=== PATIENT | female | born 1995 | race Caucasian/White ===

== ENCOUNTER 2019-05-11 10:47 | Inpatient (IN) | payer MEDICAID, SELFPAY ==
[2019-05-11] VITALS (8 sets, daily range): BP systolic 102–149; BP diastolic 82–104; PULSE 68–105; RESP 14–22; TEMP 36.4–36.7; O2SAT 98–100
--- NOTE | ~2019-05-11 | CT_ITS ---
EXAMINATION: CT brain wo con DATE: 05/11/2019 11:18 INDICATION: Altered mental status TECHNIQUE: Computed tomography (CT) of the head was performed without intravenous contrast. Sagittal and coronal reconstructions were performed. The mA was adjusted according to patient size. Iterative reconstruction technique was employed. The dose-length product was 605.33 mGy-cm. COMPARISON: None FINDINGS: No acute intracranial hemorrhage, acute infarction or abnormal extra axial fluid collection. Ventricl es are normal and symmetric. Increased prominence of the sulci and subarachnoid spaces consistent wit h mild volume loss which is disproportionate for age. No mass/mass effect. Callosal thickening with p artial opacification of the right sphenoid sinus. Mild mucosal thickening the anterior right ethmoid sinus. The orbits, paranasal sinuses and mastoid air cells are normal. IMPRESSION: 1. Mild cerebral volume loss disproportionate for age. No acute intracranial process. Reviewed, dictated and finalized at location A. IMPRESSION: 1. Mild cerebral volume loss disproportionate for age. No acute intracranial pr ocess.
--- NOTE | ~2019-05-11 | XR_ITS ---
EXAMINATION: XR chest 2V DATE: 05/11/2019 11:22 INDICATION: Productive cough TECHNIQUE: PA and lateral views of the chest were obtained. COMPARISON: None FINDINGS: The lungs are clear with no focal airspace opacities, pulmonary edema, pleural effusion or pneumothor ax. The cardiomediastinal silhouette is normal. Mild lower thoracic levocurvature. IMPRESSION: 1. No acute cardiopulmonary disease. Reviewed, dictated and finalized at location A.
--- NOTE | ~2019-05-11 | US_ITS ---
EXAMINATION: US right upper quadrant DATE: 05/11/2019 12:48 INDICATION: Liver failure TECHNIQUE: Multiple grayscale and Doppler ultrasound images of the abdomen were obtained. COMPARISON: None FINDINGS: The visualized portions of the pancreatic body is normal in appearance. The head and tail are not vis ualized. Liver has normal contour, with a smooth surface. There is increased parenchymal echogenicity and coarsened echotexture consistent with diffuse hepatic steatosis. No liver lesion identified. No intrahepatic biliary duct dilation suspected. Portal venous flow was seen in the hepatopetal, normal direction and has normal Doppler waveform. The visualized proximal inferior vena cava is normal. The gallbladder is normal in appearance. There is no cholelithiasis. The common bile duct measures 4-5 mm, which is normal. Per discussion with the r programmer there was diffuse right upper quadrant tende rness but no specific sonographic Knight's sign. Visualized portions of the right kidney demonstrates normal echogenicity and contour with no hydronephrosis. IMPRESSION: 1. Diffuse hepatic steatosis. No intra or extrahepatic biliary ductal dilation. Reviewed, dictated and finalized at location A.
--- NOTE | 2019-05-11 10:48 | ED.AMS ---
HPI - Altered Mental Status General Chief Complaint: Altered Mental Status Stated Complaint: ams Time Seen by Provider: 05/11/19 10:48 Source: patient and EMS Mode of arrival: EMS Limitations: no limitations History of Present Illness HPI narrative: A 24 y/o female presents to the ED, via EMS, with c/o AMS. Pt states that she is here for a cough and congestion with an associated subjective fever. Per EMS, pt's friend called because the pt had been drinking alcohol last night and she was not acting normal this morning. Pt's friend reported possible seizure-like activity. Pt admits that she was drinking alcohol earlier, but she denies drug use. She reports N/V x1, but denies ABD pain, CP, SI, and homicidal ideations. Onset (ago): hour(s) Timing confirmed by: other (pt's friend) Context: alcohol abuse Related Data Home Medications Medication Instructions Recorded Confirmed buspirone mg PO BID 05/11/19 risperidone mg PO DAILY 05/11/19 Allergies Allergy/AdvReac Type Severity Reaction Status Date / Time Penicillins Allergy Unknown Verified 05/11/19 11:01 acetaminophen AdvReac Unknown VOMITING Verified 05/11/19 11:01 codeine AdvReac Unknown VOMITING Verified 05/11/19 11:01 Review of Systems Review of Systems: Narrative: CONSTITUTIONAL: Reports: subjective fever CARDIOVASCULAR: Denies chest pain, palpitations, or edema. RESPIRATORY: Reports: cough, congestion; Denies dyspnea. GASTROINTESTINAL: Reports: N/V x1; Denies abdominal pain, diarrhea. NEUROLOGIC: Reports: AMS; Denies headache, numbness, or weakness. PSYCHIATRIC: Denies SI, homicidal ideations, anxiety, or depression. All systems reviewed & are unremarkable except as noted in HPI and below [facility] Surgical History Surgical History (Updated 05/11/19 @ 11:13 by Roxanna Jorgensen) H/O foot surgery right Social History Social History (Updated 05/11/19 @ 11:13 by Roxanna Jorgensen) Smoking status: Smoker, status unknown Second hand tobacco smoke exposure: No Alcohol intake: current Substance use: never Comments No PCP on file Exam Narrative: Exam Narrative: GENERAL: Awake, alert, conversant, thin, malnourished appearing HEAD: Normocephalic, atraumatic. Berman facies. NECK: Full range of motion CHEST: No respiratory distress, speaking in full sentences, no tachypnea HEART: Mildly tachycardic ABDOMEN: Mild distension EXTREMITIES: Normal range of motion. No edema. SKIN: Dry, pale. Scattered bruising to the upper and lower extremities, large ecchymosis on the left ankle NEURO: No focal deficits. Alert and oriented to person and place, but not time. Pt states it's December of 2017. She can identify the President. Course Course Emergency Course: Patient presented to the emergency department for evaluation of altered mentation. Per EMS, patient had possible reported seizure-like activity by roommate. They stated that the patient had been drinking alcohol last night, patient does confirm this. Patient is currently alert and oriented to person, and place, not to time. She is able to provide history. She has somewhat of a berman face ease/syndromic appearance without ever being diagnosed with any medical problems. Patient does state that she drinks heavily 3 to 4 days a week. She states she has never been diagnosed with alcoholism or complications from alcohol abuse. Patient is very malnourished and thin appearing. Laboratory results notable for thrombocytopenia, hyponatremia, hypokalemia, no acute kidney injury. No UTI. No evidence of pneumonia. CT head with mild atrophy given her age. No acute intracranial abnormality. Also considered metabolic pathology given syndromic appearance, but this may appear from malnourishment. Pt has no history of medical problems. Also obtained coags and RUQ US. Patient will be admitted for electrolyte derangement, for IV replenishment as well as oral replenishment. She is admitted in stable condition. Consultations Consultation #1
--- NOTE | 2019-05-11 10:52 | ECG_ITS ---
Measurements Intervals [place] Rate: 98 P: 42 VT: 132 QRS: -17 QRSD: 70 T: 33 QT: 345 QTc: 441 Interpretive Statements SINUS RHYTHM NONSPECIFIC ST & T-WAVE ABNORMALITY- DIFFUSE LEADS BASELINE ARTIFACT- I, II, III, AVR, AVL, AVF, V1-V6 BORDERLINE ECG Electronically Signed On 05-11-2019 14:50:16 CDT by Milad Auguste D.O.
[2019-05-11 11:15] LABS: Basophils Percent Auto 0.5 % (0.2-1.2); Eosinophils Percent Auto 0.2 % (0-4.4); Hematocrit 44.2 % (37.0-47.0); Hemoglobin 15.7 g/dL (12.0-15.0); Immature Granulocyte Absolute 0.02 K/mm3 (0.00-0.031); Immature Granulocyte Percent A 0.3 % (0-0.5); Lymphocytes Percent Auto 25.8 % (18.3-44.2); Mean Corpuscular HGB Conc 35.5 g/dl (32-36); Mean Corpuscular Hemoglobin 32.8 pg (26-34); Mean Corpuscular Volume 92.5 fl (80-100); Mean Platelet Volume 12.6 fl (7.4-10.4); Monocytes Absolute Auto 1.2 K/mm3 (0.1-0.6); Monocytes Percent Auto 18.9 % (2.6-8.5); Neutrophils Absolute Auto 3.4 K/mm3 (1.3-6.7); Neutrophils Percent Auto 54.3 % (45.5-73.1); Platelet Count Result 93 k/mm3 (150-375); Red Blood Count 4.78 M/mm3 (4.2-5.4); Red Cell Distribution Width 12.7 % (11.5-14.5); White Blood Count 6.2 K/mm3 (4.5-10.0)
--- NOTE | 2019-05-11 11:15 | PC.NURSE ---
pt at radiology
[2019-05-11 11:18] LABS: Glucose Point of Care 139 (65-105)
[2019-05-11 11:28] LABS: Acetaminophen < 10 ug/mL (10-30); Ammonia 15 umol/L (9-30); Ethanol < 10 mg/dL (<10); Salicylate < 1.0 mg/dL (2-20)
[2019-05-11 11:28] LABS: Add Urine Microscopic? YES; Appearance Urine Clear (Clear); Bacteria Urine Trace /hpf; Bilirubin Urine Negative (Negative); Blood Urine 1+ (Negative); Color Urine Yellow (Yellow); Glucose Urine UA Negative (Negative); Ketones Urine 1+ mg/dL (Negative); Leukocyte Esterase Ur Trace LEU/UL (Negative); Nitrate Urine Negative (Negative); Protein Urine Negative (Negative); RBC Urine 0-2 /hpf (0-2); Specific Grav Ur 1.009 (1.001-1.035); Squamous Epithelial Cell Urine Many /hpf (Few)
[2019-05-11 11:36] LABS: Albumin Level 4.7 g/dL (3.5-5.1); Alkaline Phosphatase 110 U/L (38-126); Aspartate Amino Transferase 131 U/L (14-36); Bilirubin,Total 2.7 mg/dL (0.2-1.3); Blood Urea Nitrogen 4 mg/dL (7-17); Calcium 9.6 mg/dL (8.4-10.2); Carbon Dioxide 28 mmol/L (22-30); Chloride 81 mmol/L (98-107); Creatine Kinase 49 U/L (30-135); Estimated CRCL calculation 110 ml/min; Estimated Glomerular Filt Rate > 60; Glucose 112 mg/dL (65-105); Potassium 2.2 mmol/L (3.4-5.0); Sodium 132 mmol/L (137-145)
[2019-05-11 11:38] LABS: Amphetamine Screen Urine Negative (Negative); Barbiturate Screen Urine Negative (Negative); Benzodiazepines Screen Urine Negative (Negative); Cannabinoid Screen Urine Negative (Negative); Cocaine Screen Urine Negative (Negative); Methadone Screen Urine Negative (Negative); Opiate Screen Urine Negative (Negative); Phencyclidine Screen Urine Negative (Negative)
[2019-05-11 11:39] LABS: Alanine Aminotransferase 48 U/L (4-35)
[2019-05-11] MEDS: SODIUM CHLORIDE 0.9% IV 1,000 ML 999 ML IV CONT (11:43)
[2019-05-11 12:01] LABS: Magnesium 1.3 mg/dL (1.6-2.3); Phosphorus 2.3 mg/dL (2.5-4.5)
[2019-05-11] MEDS: LORAZEPAM 0.5 MG TABLET PO (12:15)
--- NOTE | 2019-05-11 12:33 | PC.NURSE ---
Patient in ultrasound at this time
[2019-05-11 13:38] LABS: Folic Acid 4.6 ng/mL (2.76->20)
[2019-05-11 13:50] LABS: Partial Thromboplastin Time 26.9 SECONDS (22.3-36.8); Prothrombin Time 13.3 Seconds (11.1-14.7)
--- NOTE | 2019-05-11 14:12 | ADMGEN ---
This patient, Teresa Marie, was admitted to [facility] Surg Room 311-01. Patient/family oriented to hospital policies and general routines including ID bracelet, bed and alarms, visiting hours, pain management, procedures, bathroom and other care routines, personal items, smoking policy, room service/diet, and visiting hours. Valuables list has been completed. Information on how to activate the Rapid Response Team has been discussed. Patient/Family are encouraged to report perceived risks to care and to ask questions if they do not understand what they are told or what they should do.
--- NOTE | 2019-05-11 14:19 | PM.IMHP ---
H&P: HPI History of Present Illness Chief complaint: Hypokalemia/Dehydration Narrative: Date of visit 1399. Teresa Marie is a 24 year old white female who presented to the emergency room with complaints of some cough and congestion and roommate had called EMS because of altered mental status. On evaluation in the ER she is found to be hypokalemic, thrombocytopenic, with low magnesium and phosphorus. She did admit to having some drinking problem but would not admit to how much. With extreme metabolic parameters she was admitted for treatment of the same She received 2 L of IV fluid in the ER Review of Systems Review of Systems: Narrative: Constitutional she has lost some weight but she is not sure how much and says she has no appetite gets nauseated a lot Eye no double vision scotoma Mouth no pharyngitis laryngitis Pulmonary minimal cough Cardio no palpitations shortness of breath or chest pain no dysuria no hematuria Breakfast Attendant last menstrual cycle some 6 months ago GI has had some loose stools but no melena or hematochezia Muscle skeletal no particular joint discomfort Integument no skin breakdown rashes but easy bruising Psych no apparent change in her mentation [facility] Surgical History Surgical History (Updated 05/11/19 @ 11:13 by Roxanna Jorgensen) H/O foot surgery right Family History Family History (Updated 05/11/19 @ 13:31 by Pascual Ocampo RN) Mother Cerebrovascular accident Diabetes mellitus Pancreatitis Social History Social History (Updated 05/11/19 @ 14:10 by Rogers Valdivia MD) Smoking packs per day: 0.5 Smoking cigarettes per day: 10.0 Years smoked: 10 Smoking pack-years: 5.00 Smoking status: Current every day smoker Tobacco type: cigarettes Second hand tobacco smoke exposure: No Alcohol intake: current Drinks per week: 6 Alcohol use details: drinks rum up to 1/5th per day Substance use: never Living arrangements: with roommate(s) Occupation/Education: unemployed Additional occupation/education comments: lives with money from trust Gender identity (if verbalized by the patient): Female Spiritual care concerns: No Agree to blood products: Yes Meds Home Medications and Allergies Home Medications Medication Instructions Recorded Confirmed Type buspirone mg PO BID 05/11/19 History risperidone mg PO DAILY 05/11/19 History Allergies Allergy/AdvReac Type Severity Reaction Status Date / Time Penicillins Allergy Unknown Verified 05/11/19 11:01 acetaminophen AdvReac Unknown VOMITING Verified 05/11/19 11:01 codeine AdvReac Unknown VOMITING Verified 05/11/19 11:01 Vital Signs Vital Signs - 24 hr 05/11/19 10:47 05/11/19 11:27 05/11/19 12:16 Temperature 36.7 C Pulse Rate 105 H 83 Respiratory Rate 22 H 16 14 Blood Pressure 149/104 H 128/98 H Pulse Oximetry 98 100 Exam Narrative: Exam Narrative: Blood pressure 128/90 pulse is 82 regular Neck no adenopathy thyromegaly carotid bruits Mouth normal, face is full almost maxwell shaped Lungs clear CV no murmurs gallops rubs or clicks Abdomen is soft nontender no masses Extremities without edema distal pulses are 2+ Neuro alert cooperative cranial nerves 2-12 are intact oriented x3 no focal deficits this time H&P: Results Labs Labs: Short CBC 05/11/19 Range/Units 11:04 WBC 6.2 (4.5-10.0) K/mm3 Hgb 15.7 H (12.0-15.0) g/dL Hct 44.2 (37.0-47.0) % Plt Count 93 L (150-375) k/mm3 BMP 05/11/19 11:04 Sodium 132 L Potassium 2.2 L* Chloride 81 L Carbon Dioxide 28 BUN 4 L Creatinine 0.60 L Glucose 112 H Calcium 9.6 Cardiac Enzymes 05/11/19 Range/Units 11:04 Total Creatine Kinase 49 (30-135) U/L Liver Function 05/11/19 Range/Units 11:04 Total Bilirubin 2.7 H (0.2-1.3) mg/dL AST 131 H (14-36) U/L ALT 48 H (4-35) U/L Alkaline Phosphatase 110 (38-126) U/L Albumin 4.7 (3.5-5.1) g/dL Urine 05/11/19 Range/Un
[2019-05-11] MEDS: POTASSIUM CHLORIDE 20 MEQ TABLET 40 MEQ PO ×2 (16:09→21:00)
[2019-05-11] MEDS: MAGNESIUM SULF 2 GM/WATER 50ML 2 GM/50 ML BAG IVPB (17:02)
[2019-05-11] MEDS: busPIRone HCL 5 MG TABLET PO (19:53)
[2019-05-11] MEDS: POTASSIUM PHOS,M-BASIC-D-BASIC 20 MMOL in SODIUM CHLORIDE 0.9% IV 250 ML 64 MMOL IVPB (20:53)
[2019-05-11] MEDS: LORAZEPAM INJ 2 MG/ML VIAL 1 MG IV PUSH (22:12)
[2019-05-12] VITALS (28 sets, daily range): BP systolic 99–148; BP diastolic 68–108; PULSE 54–125; RESP 15–22; TEMP 36.1–36.5; O2SAT 92–100; BMI 23.0
[2019-05-12 00:38] LABS: Glucose Point of Care 108 (65-105)
[2019-05-12] MEDS: LORAZEPAM INJ 2 MG/ML VIAL 1 MG IV PUSH (02:00)
[2019-05-12] MEDS: LORAZEPAM INJ 2 MG/ML VIAL IV PUSH (02:56)
--- NOTE | 2019-05-12 03:50 | P.PNCROSS_ITS ---
Event Note Event Note Event Note: This is a 24 year old female who is being treated for acute altered mental status and alcohol abuse who tonight began to have withdrawal symptoms. I initiated a CIWA protocol and the patient has recieved a total of 4 mg of IV ativan. She continued to be very agitated, hallucinating, diaphoretic and exhibiting visible tremors. I have consulted Farm Operations Technical Director, Dr. Govea. I will transfer the patient to ICU. Initiate precedix IV bolus and IV drip. Continue IV BZDs. I will continue to assess as needed.
--- NOTE | 2019-05-12 04:36 | PC.NURSE ---
This patient, Teresa Marie, was transferred to [ICU 10 ] on 05/12/19 at 0430. Personal belongings sent with patient. Belongings list checked and signed with receiving [ Ehsan RN]. Report given to [Ehsan RN ]. Appropriate documentation sent with patient.
--- NOTE | 2019-05-12 04:37 | PC.NURSE ---
This patient, Teresa Marie, was received from [[id number] ] on 05/12/19 at 0430. Personal belongings list checked and signed. Patient/family oriented to unit policies and routines
[2019-05-12 05:42] LABS: Basophils Percent Auto 0.5 % (0.2-1.2); Eosinophils Percent Auto 0.2 % (0-4.4); Hemoglobin 12.1 g/dL (12.0-15.0); Immature Granulocyte Absolute 0.02 K/mm3 (0.00-0.031); Immature Granulocyte Percent A 0.5 % (0-0.5); Lymphocytes Absolute Auto 1.12 K/mm3 (0.9-3.2); Lymphocytes Percent Auto 26.9 % (18.3-44.2); Mean Corpuscular HGB Conc 34.6 g/dl (32-36); Mean Corpuscular Hemoglobin 32.9 pg (26-34); Mean Corpuscular Volume 95.1 fl (80-100); Mean Platelet Volume 13.1 fl (7.4-10.4); Monocytes Absolute Auto 0.6 K/mm3 (0.1-0.6); Monocytes Percent Auto 14.7 % (2.6-8.5); Neutrophils Absolute Auto 2.4 K/mm3 (1.3-6.7); Neutrophils Percent Auto 57.2 % (45.5-73.1); Platelet Count Result 62 k/mm3 (150-375); Red Blood Count 3.68 M/mm3 (4.2-5.4); Red Cell Distribution Width 12.8 % (11.5-14.5); White Blood Count 4.2 K/mm3 (4.5-10.0)
[2019-05-12 05:49] LABS: Alanine Aminotransferase 41 U/L (4-35); Albumin Level 3.4 g/dL (3.5-5.1); Alkaline Phosphatase 80 U/L (38-126); Aspartate Amino Transferase 109 U/L (14-36); Bilirubin,Total 1.5 mg/dL (0.2-1.3); Blood Urea Nitrogen 5 mg/dL (7-17); Calcium 8.5 mg/dL (8.4-10.2); Carbon Dioxide 32 mmol/L (22-30); Chloride 99 mmol/L (98-107); Estimated CRCL calculation 157 ml/min; Estimated Glomerular Filt Rate > 60; Glucose 114 mg/dL (65-105); Magnesium 1.9 mg/dL (1.6-2.3); Phosphorus 1.6 mg/dL (2.5-4.5); Potassium 2.9 mmol/L (3.4-5.0); Sodium 134 mmol/L (137-145)
[2019-05-12 06:15] LABS: Vitamin D 25 Hydroxy 15.4 ng/mL
[2019-05-12] MEDS: LACTATED RINGERS 1,000 ML 999 ML IV CONT (08:27)
[2019-05-12 08:30] LABS: Hepatitis B Surface Antigen Negative (Negative)
[2019-05-12 08:40] LABS: HAV RESULT Negative (Negative); Hepatitis B Core IgM Result Negative (Negative)
--- NOTE | 2019-05-12 08:44 | PC.NURSE ---
RN called family to update them about updated patient status and patient transfer to ICU at 0435 and left a message.
[2019-05-12 09:06] LABS: Hepatitis C Virus Antibody Negative (Negative)
--- NOTE | 2019-05-12 10:55 | WPDCNINT ---
Assessment and Plan Assessment and plan (1) Altered mental status: Qualifiers: Altered mental status type: unspecified Qualified Code(s): R41.82 - Altered mental status, unspecified Code(s): R41.82 - Altered mental status, unspecified Status: Acute Assessment and Plan: patient more awake, follows simple commands but is confused - currently she is calm, not agitated - continue Precedex infusion for possible alcohol intoxication/withdrawal - continue thiamine, will add folic acid and multivitamin - started patient on Librium (2) Alcohol abuse: Code(s): F10.10 - Alcohol abuse, uncomplicated Status: Acute Assessment and Plan: patient with alcohol abuse - continue medications as above - once patient improves, will discuss with her regarding alcohol rehab (3) Acute hypokalemia: Code(s): E87.6 - Hypokalemia Status: Acute Assessment and Plan: Replaced potassium and phosphorus (4) Thrombocytopenia: Code(s): D69.6 - Thrombocytopenia, unspecified Status: Acute Assessment and Plan: Thrombocytopenia likely related to alcohol abuse, continue to monitor - patient states she bruises easily, likely related to thrombocytopenia (5) Elevated LFTs: Code(s): R79.89 - Other specified abnormal findings of blood chemistry Status: Acute Assessment and Plan: elevated LFTs and total bilirubin, likely related to hepatic steatosis, alcohol abuse - transaminases trending down, continue to monitor Additional Plan discuss with patient updated with her condition and plan of care. 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 Patient also presented with some fevers and cough and congestion roommate had called EMS because of her altered mental status. According the ED record, patient's friend called EMS because the patient had been drinking alcohol the night prior to admission and was not acting normal on the day of admission. patient did admit to having alcohol. According the bedside RN patient drinks a 5th of rum daily. patient was admitted the medical floor for altered mental status and alcohol abuse and started to manifest withdrawal symptoms. CIWA score was elevated patient was agitated, hallucinating, diaphoretic and exhibited visible tremors. Patient was transferred to the ICU for Precedex infusion. Patient seen and examined the ICU this morning. Is awake, alert but confused. Patient thing she is in [place]. Patient denies any chest pain, abdominal pain, nausea vomiting at this time. Patient is participating in her examination. Patient follows commands, no tremors noted. Patient on Precedex infusion Review of Systems Review of Systems: All systems reviewed & are unremarkable except as noted in HPI and below [facility] Surgical History Surgical History (Updated 05/11/19 @ 11:13 by Roxanna Jorgensen) H/O foot surgery right Family History Family History (Updated 05/11/19 @ 13:31 by Pascual Ocampo RN) Mother Cerebrovascular accident Diabetes mellitus Pancreatitis Social History Social History (Updated 05/11/19 @ 14:10 by Rogers Valdivia MD) Smoking packs per day: 0.5 Smoking cigarettes per day: 10.0 Years smoked: 10 Smoking pack-years: 5.00 Smoking status: Current every day smoker Tobacco type: cigarettes Second hand tobacco smoke exposure: No Alcohol intake: current Drinks per week: 6 Alcohol use details: drinks rum up to 1/5th per day Substance use: never Living arrangements: with roommate(s) Occupation/Education: unemployed Additional occupation/education comments: lives with money from trust Gender identity (if verbalized by the patient): Pratibhaa
[2019-05-12] MEDS: POTASSIUM PHOS,M-BASIC-D-BASIC 20 MMOL in SODIUM CHLORIDE 0.9% IV 250 ML 62.5 MMOL IVPB (11:34)
[2019-05-12 12:51] LABS: Glucose Point of Care 94 (65-105)
[2019-05-12] MEDS: FOLIC ACID 1 MG TABLET PO (13:15)
[2019-05-12] MEDS: CHLORDIAZEPOXIDE 25 MG CAPSULE 50 MG PO ×3 (13:15→23:19)
[2019-05-12] MEDS: THERAPEUTIC MULTIVITAMINS/MINERALS TAB (*BKC) 1 TABLET PO (13:15)
[2019-05-12] MEDS: busPIRone HCL 5 MG TABLET PO ×2 (13:15→17:44)
[2019-05-12] MEDS: risperiDONE 0.25 MG TABLET PO (13:16)
[2019-05-12] MEDS: THIAMINE HCL 100 MG TABLET PO (13:16)
--- NOTE | 2019-05-12 14:01 | PM.IMPN ---
Progress Note: A&P Assessment and Plan (1) Altered mental status: Qualifiers: Altered mental status type: unspecified Qualified Code(s): R41.82 - Altered mental status, unspecified Code(s): R41.82 - Altered mental status, unspecified Status: Acute Assessment and Plan: Oriented and lucid initially on admission became more confused and hallucinating p.m. of the .. Probable all alcohol withdrawal but she has been on major tranquilizers in the past and could be complicated by major affective disorder. Continue to monitor and and correct electrolyte abnormalities (2) Acute hypokalemia: Code(s): E87.6 - Hypokalemia Status: Acute Assessment and Plan: P.o. and IV supplements. Still low today after over 100 mil equivalents given 05/10. suspect all dietary with ETOH abuse Continue monitor and replace with (3) Alcohol abuse: Code(s): F10.10 - Alcohol abuse, uncomplicated Status: Acute Assessment and Plan: Patient admits to drinking almost a 5th of rum daily . Questioned whether she like to talk to someone about rehab but she reluctant to do so. Realizes that she does need to stop Has gone for so long as 3-4 days in the past and gets a little shaky but never had any withdrawal (4) Thrombocytopenia: Code(s): D69.6 - Thrombocytopenia, unspecified Status: Acute Assessment and Plan: Suspect secondary to ETOH. Will check robb, B12 level is normal (5) Elevated LFTs: Code(s): R79.89 - Other specified abnormal findings of blood chemistry Status: Acute Assessment and Plan: Thought secondary to ETOH. Sonogram liver with fatty infiltration. hepatitis profile negative and trending down.. (6) DVT prophylaxis: Code(s): Z29.9 - Encounter for prophylactic measures, unspecified Status: Acute Assessment and Plan: mechanical with thrombocytopenia Subjective Date/time seen: 05/12/19 14:01 Interval history: Date of visit 05/11 24-year-old alcoholic brought to hospital when roommate noted she was confused. Found to be profoundly hypokalemic with thrombocytopenia. Initial evaluation by me revealed alert and oriented but on the evening of the restarted actively hallucinating and was transferred to ICU for further treatment. Currently on Precedex drip Exam Narrative: Exam Narrative: Blood pressure 132/90 pulse 56 regular afebrile Pupils equal reactive to light Neck supple Lungs clear CV regular rate rhythm Abdomen benign Extremities without edema with some bruising Neuro initially groggy but arousable and calm with no active hallucinations presently Objective Data Vital Signs Vital Signs: Vital Signs - 24 hr 05/11/19 16:00 05/11/19 20:00 05/11/19 21:39 Temperature Pulse Rate 102 H 84 Pulse Rate [Left Radial] 99 Respiratory Rate Blood Pressure Pulse Oximetry 05/11/19 22:00 05/12/19 00:27 05/12/19 02:00 Temperature 36.4 C L Pulse Rate 99 76 Pulse Rate [Left Radial] 101 H Respiratory Rate 16 Blood Pressure 102/82 102/82 Pulse Oximetry 100 05/12/19 03:56 05/12/19 04:00 05/12/19 04:30 Temperature 36.5 C Pulse Rate 93 100 Pulse Rate [Left Radial] 125 H Respiratory Rate 18 Blood Pressure 135/94 H 135/94 H Pulse Oximetry 100 96 05/12/19 04:34 05/12/19 04:37 05/12/19 04:45 Temperature 36.4 C Pulse Rate 71 65 62 Pulse Rate [Left Radial] Respiratory Rate 19 17 16 Blood Pressure 143/108 H Pulse Oximetry 05/12/19 04:46 05/12/19 04:48 05/12/19 05:00 Temperature Pulse Rate 63 64 62 Pulse Rate [Left Radial] Respiratory Rate 16 16 17 Blood Pressure 128/102 H 124/94 H Pulse Oximetry 05/12/19 05:01 05/12/19 05:15 05/12/19 05:30 Temperature Pulse Rate 64 66 68 Pulse Rate [Left Radial] Respiratory Rate 16 15 17 Blood Pressure 119/88 Pulse Oximetry 05/12/19 05:31 05/12/19 05:45 05/12/19 06:00 Temperature Pu
[2019-05-12 18:46] LABS: Glucose Point of Care 299 (65-105)
[2019-05-12 18:52] LABS: Albumin Level 3.3 g/dL (3.5-5.1); Blood Urea Nitrogen 3 mg/dL (7-17); Calcium 8.8 mg/dL (8.4-10.2); Carbon Dioxide 30 mmol/L (22-30); Chloride 101 mmol/L (98-107); Estimated CRCL calculation 129 ml/min; Estimated Glomerular Filt Rate > 60; Glucose 109 mg/dL (65-105); Phosphorus 3.9 mg/dL (2.5-4.5); Potassium 3.4 mmol/L (3.4-5.0); Sodium 139 mmol/L (137-145)
--- NOTE | 2019-05-12 19:55 | PC.NURSE ---
Patient complaining that she wants to play a game on the floor. Patient explained that she is in the ICU on medication for close monitoring. Patient reassured that she is in a safe place.
--- NOTE | 2019-05-12 22:33 | PC.NURSE ---
Patient keeps removing medical devices and trying to get out of bed. Patient informed that she needs to keep it on for her safety. Patient reminded that she is in an ICU and her friends are not here. Patient continues to be upset and states that you signed up for this. Will continue to monitor.
[2019-05-12 23:15] LABS: Glucose Point of Care 143 (65-105)
[2019-05-13] VITALS (9 sets, daily range): BP systolic 98–148; BP diastolic 64–107; PULSE 61–113; RESP 15–22; TEMP 36.1–36.7; O2SAT 94–100
--- NOTE | 2019-05-13 02:03 | PC.NURSE ---
Patient hopping out of bed. States has to pee but very uncooperative. Patient states that we are all fucking freaks. Patient reminded that she is on precedex and we are here for her safety at this time. Continue to monitor.
[2019-05-13 04:41] LABS: Basophils Percent Auto 0.5 % (0.2-1.2); Eosinophils Absolute Auto 0.1 K/mm3 (0-0.3); Eosinophils Percent Auto 1.3 % (0-4.4); Hematocrit 39.3 % (37.0-47.0); Hemoglobin 13.8 g/dL (12.0-15.0); Immature Granulocyte Absolute 0.01 K/mm3 (0.00-0.031); Immature Granulocyte Percent A 0.2 % (0-0.5); Lymphocytes Absolute Auto 1.35 K/mm3 (0.9-3.2); Lymphocytes Percent Auto 21.1 % (18.3-44.2); Mean Corpuscular HGB Conc 35.1 g/dl (32-36); Mean Corpuscular Hemoglobin 33.3 pg (26-34); Mean Corpuscular Volume 94.7 fl (80-100); Mean Platelet Volume 13.5 fl (7.4-10.4); Monocytes Absolute Auto 0.9 K/mm3 (0.1-0.6); Monocytes Percent Auto 14.1 % (2.6-8.5); Neutrophils Percent Auto 62.8 % (45.5-73.1); Platelet Count Result 73 k/mm3 (150-375); Red Blood Count 4.15 M/mm3 (4.2-5.4); Red Cell Distribution Width 12.8 % (11.5-14.5); White Blood Count 6.4 K/mm3 (4.5-10.0)
[2019-05-13 04:57] LABS: Alanine Aminotransferase 63 U/L (4-35); Albumin Level 3.8 g/dL (3.5-5.1); Alkaline Phosphatase 117 U/L (38-126); Aspartate Amino Transferase 133 U/L (14-36); Bilirubin,Total 1.1 mg/dL (0.2-1.3); Blood Urea Nitrogen 3 mg/dL (7-17); Calcium 9.4 mg/dL (8.4-10.2); Carbon Dioxide 31 mmol/L (22-30); Chloride 101 mmol/L (98-107); Estimated CRCL calculation 129 ml/min; Estimated Glomerular Filt Rate > 60; Glucose 106 mg/dL (65-105); Magnesium 1.4 mg/dL (1.6-2.3); Phosphorus 3.7 mg/dL (2.5-4.5); Potassium 3.9 mmol/L (3.4-5.0); Sodium 137 mmol/L (137-145)
[2019-05-13] MEDS: CHLORDIAZEPOXIDE 25 MG CAPSULE 50 MG PO ×4 (05:09→23:57)
[2019-05-13] MEDS: THERAPEUTIC MULTIVITAMINS/MINERALS TAB (*BKC) 1 TABLET PO (08:40)
[2019-05-13] MEDS: busPIRone HCL 5 MG TABLET PO ×2 (08:40→17:27)
[2019-05-13] MEDS: risperiDONE 0.25 MG TABLET PO (08:40)
[2019-05-13] MEDS: FOLIC ACID 1 MG TABLET PO (08:40)
[2019-05-13] MEDS: MAGNESIUM SULF 2 GM/WATER 50ML 2 GM/50 ML BAG IVPB (08:41)
[2019-05-13] MEDS: THIAMINE HCL 100 MG TABLET PO (08:41)
--- NOTE | 2019-05-13 09:38 | PM.IMPN ---
Progress Note: A&P Assessment and Plan (1) Altered mental status: Qualifiers: Altered mental status type: unspecified Qualified Code(s): R41.82 - Altered mental status, unspecified Code(s): R41.82 - Altered mental status, unspecified Status: Acute Assessment and Plan: Last drink was on 05/09 She has been considering rehab Wants to try on her own first (2) Acute hypokalemia: Code(s): E87.6 - Hypokalemia Status: Acute Assessment and Plan: 05/11 3.9, mag 1.4; iv mag (3) Alcohol abuse: Code(s): F10.10 - Alcohol abuse, uncomplicated Status: Acute Assessment and Plan: Patient admits to drinking almost a 5th of rum daily.\ She is in the contemplation stage. Will give rehab info. (4) Thrombocytopenia: Code(s): D69.6 - Thrombocytopenia, unspecified Status: Acute Assessment and Plan: Likley due to alcohol (5) Elevated LFTs: Code(s): R79.89 - Other specified abnormal findings of blood chemistry Status: Acute Assessment and Plan: Likely due to alcohol Improving Hepatitis profile negative U/s c/w fatty liver Subjective Date/time seen: 05/13/19 09:38 Interval history: Alcohol abuse, w/d. Feels much better. Tolerating diet. Review of Systems Review of Systems: All systems reviewed & are unremarkable except as noted in HPI and below Exam Narrative: Exam Narrative: HEENT: EOMI, PERRL, pharyngeal mucosa pink and intact NECK: No JVD CHEST: Clear to auscultation. Normal effort. HEART: NL S1/S2, regular, no murmur ABDOMEN: BS+, soft, nontender, no mass, no bruits EXTREMITIES: No cyanosis, edema, or clubbing NEUROLOGIC: CN intact and symmetric to inspection. MUSCULOSKELETAL: Tone and strength symmetric. PSYCH: Alert. Oriented to person, place, and time. Objective Data Vital Signs Vital Signs: Vital Signs - 24 hr 05/12/19 10:00 05/12/19 12:00 05/12/19 14:00 Temperature 97 F L Pulse Rate 70 56 L 63 Pulse Rate [Left Radial] Respiratory Rate 22 H 18 16 Blood Pressure 129/100 H 133/90 99/68 L Pulse Oximetry 99 92 95 05/12/19 16:00 05/12/19 17:59 05/12/19 18:00 Temperature 97.3 F L 97.0 F L Pulse Rate 78 54 L 61 Pulse Rate [Left Radial] Respiratory Rate 17 16 Blood Pressure 113/86 135/92 H Pulse Oximetry 93 100 05/12/19 20:00 05/12/19 21:54 05/12/19 22:00 Temperature 97.7 F Pulse Rate 76 60 65 Pulse Rate [Left Radial] 77 Respiratory Rate 17 15 Blood Pressure 148/95 H 140/99 H Pulse Oximetry 100 100 05/13/19 00:00 05/13/19 02:00 05/13/19 03:45 Temperature Pulse Rate 88 61 Pulse Rate [Left Radial] 87 63 Respiratory Rate 15 22 H Blood Pressure 148/93 H Pulse Oximetry 98 05/13/19 03:46 05/13/19 04:00 05/13/19 06:00 Temperature 97.9 F Pulse Rate 64 71 67 Pulse Rate [Left Radial] Respiratory Rate 17 19 20 Blood Pressure 147/107 H 144/106 H Pulse Oximetry 97 97 Intake/Output Intake/Output: Intake & Output 05/10/19 05/11/19 05/12/19 05/13/19 23:59 23:59 23:59 23:59 Intake Total 1050 2209.2567 1208 Output Total 1000 Balance 1050 2209.2567 208 Meds/Results Medications: Active Medications Generic Name Dose Route Start Last Admin Trade Name Freq PRN Reason Stop Dose Admin Buspirone HCl 5 mg 05/11/19 17:00 05/13/19 08:40 Buspar PO 5 mg BID LEWIS Administration Chlordiazepoxide HCl 50 mg 05/12/19 11:00 05/13/19 05:09 Librium Po PO 50 mg Q6HR LEWIS Administration Folic Acid 1 mg 05/12/19 10:13 05/13/19 08:40 Folic Acid PO 1 mg DAILY LEWIS Administration Dexmedetomidine HCl 400 mcg in 100 mls @ 0 mls/hr 05/12/19 03:50 05/13/19 05:12 Precedex 400 Mcg/D5w 100 Ml IV CONT 0 mcg/kg/hr .Q0M LEWIS 0 mls/hr Titration Protocol 0 MCG/KG/HR Lorazepam 1 mg 05/11/19 21:39 05/12/19 02:00 Ativan Inj IV PUSH 1 mg Q4H PRN Administration Withdrawal Multivitamins/Calcium 1 tabl
--- NOTE | 2019-05-13 10:34 | PCDIET ---
Nutrition Follow-Up Complete: Nutrition Diagnosis: Involuntary weight loss related to ETOH abuse as evidenced by more than 30 pound weight loss and reports of drinking fifth of rum daily. Nutrition Goal: Patient to consume 75% of meals or greater on advanced diet. Goal met. Patient consuming 75-100% of meals on regular diet. Recommend stopping Ensure Compact since intake has been adequate. Last recorded weight is 63 kg which is stable. Bowel Motility: BM x 3 today. Labs Reviewed: Glu (106), BUN (3), Cr (0.5), Mg (1.4) Meds Noted: Magnesium Sulfate, Librium, MVI/minerals, Thiamine, Folic Acid, Precedex Additional Notes: No documented skin breakdown. Continue to recommend vitamin D supplementation. Nutrition Monitoring and Evaluation: Follow up every 7 days.
--- NOTE | 2019-05-13 13:00 | PC.NURSE ---
This patient, Teresa Marie, was received from ICU on 05/13/19 at 1300. Personal belongings list checked and signed. Patient/family oriented to unit policies and routines
--- NOTE | 2019-05-13 13:52 | PC.NURSE ---
This patient, Teresa Marie, was transferred to [facility] on 05/13/19 at 1255. Personal belongings sent with patient. Report given to SHOBHA Cox. Appropriate documentation sent with patient.
--- NOTE | 2019-05-13 15:02 | WPDINTPN ---
Progress Note: A&P Assessment and Plan (1) Altered mental status: Qualifiers: Altered mental status type: unspecified Qualified Code(s): R41.82 - Altered mental status, unspecified Code(s): R41.82 - Altered mental status, unspecified Status: Acute Assessment and Plan: patient more awake, follows simple commands and answers to questions appropriately this morning - currently she is calm, not agitated - OFF PRECEDEX INFUSION - continue thiamine, otic acid and multivitamin - continue Librium (2) Alcohol abuse: Code(s): F10.10 - Alcohol abuse, uncomplicated Status: Acute Assessment and Plan: patient with alcohol abuse - continue medications as above - once patient improves, will discuss with her regarding alcohol rehab (3) Acute hypokalemia: Code(s): E87.6 - Hypokalemia Status: Acute Assessment and Plan: RESOLVED (4) Thrombocytopenia: Code(s): D69.6 - Thrombocytopenia, unspecified Status: Acute Assessment and Plan: Thrombocytopenia likely related to alcohol abuse, continue to monitor - patient states she bruises easily, likely related to thrombocytopenia (5) Elevated LFTs: Code(s): R79.89 - Other specified abnormal findings of blood chemistry Status: Acute Assessment and Plan: LFTs and bilirubin improving - initially elevated LFTs and bilirubin likely related to hepatic steatosis, alcohol abuse - , continue to monitor Additional Plan discuss with patient updated with her condition and plan of care. Code status: Full code Critical care time spent: 31 minutes Subjective Date/time seen: 05/13/19 15:02 REASON FOR CONSULT; CONFUSION, ALCOHOL INTOXICATION/WITHDRAWAL REQUIRING PRECEDEX INFUSION, hypokalemia, thrombocytopenia 05/13/2019: Patient seen examined the ICU, off Precedex infusion. Is more awake, alert and answers to questions more appropriately, follows simple commands. Patient is hemodynamically stable, on room air with good O2 sats. Urine output has been adequate. Patient denies any chest pain, shortness of breath, abdominal pain, nausea vomiting. Patient has multiple wounds in different stages of healing on her upper and lower extremity. she states that she does not know why she bruises so easily Review of Systems Review of Systems: All systems reviewed & are unremarkable except as noted in HPI and below Exam Const: General: comfortable and no acute distress HENMT: Mouth: Yes dry mucous membranes Eyes: Sclera: sclerae normal Pupils: Equal, round and reactive pupils present Neck: Neck: supple and no JVD Resp: Effort & Inspection: normal respiratory effort Auscultation: clear to auscultation bilaterally Cardio: Rate: bradycardic Rhythm: regular rhythm GI: Inspection: non-distended GI Palp: Yes Soft to palpation and No Tenderness to palpation present (GI) Auscultation: normal bowel sounds : Other: deferred Urinary Catheter: Urinary Catheter: urine clear Skin: Other: bruises noted Neuro: Cranial nerves: Yes Equal, round and reactive pupils present Other: patient is awake, alert, is able to answer more questions appropriately, nonfocal, follows simple commands Extrem: Other: no tremors appreciated at this time Psych: Mental Status: mental status grossly normal Affect: normal affect Objective Data Vital Signs Vital Signs: Vital Signs - 24 hr 05/12/19 16:00 05/12/19 17:59 05/12/19 18:00 Temperature 97.3 F L 97.0 F L Pulse Rate 78 54 L 61 Pulse Rate [Left Radial] Respiratory Rate 17 16 Blood Pressure 113/86 135/92 H Pulse Oximetry 93 100 05/12/19 20:00 05/12/19 21:54 05/12/19 22:00 Temperature 97.7 F Pulse Rate 76 60 65 Pulse Rate [Left Radial] 77 Respiratory Rate 17 15 Blood Pressure 148/95 H 140/99 H Pulse Oximetry 100 100 05/13/19 00:00 05/13/19 02:00 05/13/19 03:45 Temperature Pulse Rate 88 61 Pulse Rat
[2019-05-13] MEDS: LORAZEPAM INJ 2 MG/ML VIAL 1 MG IV PUSH (19:40)
[2019-05-14 05:50] VITALS: BP 108/66; PULSE 90; RESP 18; TEMP 36.1; O2SAT 97
[2019-05-14] MEDS: CHLORDIAZEPOXIDE 25 MG CAPSULE 50 MG PO (06:09)
[2019-05-14] MEDS: THERAPEUTIC MULTIVITAMINS/MINERALS TAB (*BKC) 1 TABLET PO (08:13)
[2019-05-14] MEDS: FOLIC ACID 1 MG TABLET PO (08:13)
[2019-05-14] MEDS: risperiDONE 0.25 MG TABLET PO (08:13)
[2019-05-14] MEDS: THIAMINE HCL 100 MG TABLET PO (08:13)
[2019-05-14] MEDS: busPIRone HCL 5 MG TABLET PO (08:13)
[2019-05-14 10:28] LABS: Hematocrit 36.6 % (37.0-47.0); Hemoglobin 12.6 g/dL (12.0-15.0); Mean Corpuscular HGB Conc 34.4 g/dl (32-36); Mean Corpuscular Hemoglobin 33.2 pg (26-34); Mean Corpuscular Volume 96.6 fl (80-100); Mean Platelet Volume 12.9 fl (7.4-10.4); Platelet Count Result 109 k/mm3 (150-375); Red Blood Count 3.79 M/mm3 (4.2-5.4); Red Cell Distribution Width 13.2 % (11.5-14.5); White Blood Count 7.6 K/mm3 (4.5-10.0)
--- NOTE | 2019-05-14 10:43 | PM.DS ---
DS: Diagnosis Admitting Diagnosis Admitting Diagnosis: Altered mental status, unspecified Discharge Diagnosis (1) Altered mental status: Qualifiers: Altered mental status type: unspecified Qualified Code(s): R41.82 - Altered mental status, unspecified Code(s): R41.82 - Altered mental status, unspecified Status: Acute Assessment and Plan: Last drink was on 05/09 She has been considering rehab Wants to try on her own first (2) Acute hypokalemia: Code(s): E87.6 - Hypokalemia Status: Acute Assessment and Plan: 05/11 3.9, mag 1.4; iv mag 05/13 K 3.4 (3) Alcohol abuse: Code(s): F10.10 - Alcohol abuse, uncomplicated Status: Acute Assessment and Plan: Patient admits to drinking almost a 5th of rum daily. She is in the contemplation stage. Patient has rehab info and plans to contact them as soon as possible to obtain more information (4) Thrombocytopenia: Code(s): D69.6 - Thrombocytopenia, unspecified Status: Acute Assessment and Plan: Likley due to alcohol (5) Elevated LFTs: Code(s): R79.89 - Other specified abnormal findings of blood chemistry Status: Acute Assessment and Plan: Likely due to alcohol Improving Hepatitis profile negative U/s c/w fatty liver DS: Summary Hospital Course Reason for hospitalization: Alcohol withdrawal Hospital Course: Teresa Marie is a 24 year old female history of alcohol abuse, present to the ED on 05/11/2019 with complains of acute altered mental status. Patient also presented with some fevers and cough and congestion roommate had called EMS because of her altered mental status. According the ED record, patient's friend called EMS because the patient had been drinking alcohol the night prior to admission and was not acting normal on the day of admission. patient did admit to having alcohol. According the bedside RN patient drinks a 5th of rum daily. patient was admitted the medical floor for altered mental status and alcohol abuse and started to manifest withdrawal symptoms. CIWA score was elevated patient was agitated, hallucinating, diaphoretic and exhibited visible tremors. Patient was transferred to the ICU for Precedex infusion. She was able to wean off the Precedex infusion the day prior to discharge. She was up and about in the room. Tolerating her diet. She was alert oriented person place and time and in no acute distress. She had no tremors anxiety or sweats. Time Spent with Patient Time attestation: Total time spent providing and/or coordinating discharge services: 34 min Exam Narrative: Exam Narrative: HEENT: EOMI, PERRL, pharyngeal mucosa pink and intact NECK: No JVD CHEST: Clear to auscultation. Normal effort. HEART: NL S1/S2, regular, no murmur ABDOMEN: BS+, soft, nontender, no mass, no bruits EXTREMITIES: No cyanosis, edema, or clubbing NEUROLOGIC: CN intact and symmetric to inspection. MUSCULOSKELETAL: Tone and strength symmetric. PSYCH: Alert. Oriented to person, place, and time. DS: Data Data Completed and Pending Labs on day of discharge: Labs from last 24 hours 05/14/19 05/14/19 05/12/19 10:09 10:09 05:23 WBC 7.6 RBC 3.79 L Hgb 12.6 Hct 36.6 L MCV 96.6 MCH 33.2 MCHC 34.4 RDW 13.2 Plt Count 109 L MPV 12.9 H Sodium Pending Potassium Pending Chloride Pending Carbon Dioxide Pending BUN Pending Creatinine Pending Estim Creat Clear Calc Pending Estimated GFR Pending Glucose Pending Calcium Pending Magnesium Pending Total Bilirubin Pending AST Pending ALT Pending Alkaline Phosphatase Pending Total Protein Pending Albumin Pending KEVYN Screen Positive A Discharge Plan Discharge Consulting providers: Freda Govea Discharging Clinician: Ray Archibald Patient Disposition: Home, Self-Care Activity: as tolerated Diet: as tolerated
[2019-05-14 10:58] LABS: Alanine Aminotransferase 64 U/L (4-35); Albumin Level 3.3 g/dL (3.5-5.1); Alkaline Phosphatase 117 U/L (38-126); Aspartate Amino Transferase 92 U/L (14-36); Bilirubin,Total 0.8 mg/dL (0.2-1.3); Blood Urea Nitrogen 5 mg/dL (7-17); Calcium 8.9 mg/dL (8.4-10.2); Carbon Dioxide 26 mmol/L (22-30); Chloride 103 mmol/L (98-107); Estimated CRCL calculation 129 ml/min; Estimated Glomerular Filt Rate > 60; Glucose 128 mg/dL (65-105); Magnesium 1.5 mg/dL (1.6-2.3); Potassium 3.4 mmol/L (3.4-5.0); Sodium 136 mmol/L (137-145)
[2019-05-14 10:58] LABS: ANA Titer 1:40 (Negative); Anti Nuclear Antibody Pattern Nuclear, Speckled; Anti Nuclear Antibody Titer 1:40 (Negative)
== END 2019-05-14 11:27 | disposition home or self-care (01) | DRG 775 ==
LOC: ANHED 12:01 → ANH3MEDSUR 12:27 → ANHICU 05-12 04:58 → ANH2MED 05-14 02:36 → ANHICU 05-15 13:26
PROVIDERS: Admitting Provider Internal Medicine; Emergency Provider Emergency Medicine; PCP Emergency Medicine; Visit Provider Internal Medicine
DX: F10.10 Alcohol abuse, uncomplicated (principal); E87.6 Hypokalemia; D69.6 Thrombocytopenia, unspecified; F17.210 Nicotine dependence, cigarettes, uncomplicated; E46 Unspecified protein-calorie malnutrition; Z68.23 Body mass index [BMI] 23.0-23.9, adult; E87.1 Hypo-osmolality and hyponatremia; R45.1 Restlessness and agitation; R44.3 Hallucinations, unspecified; R25.1 Tremor, unspecified; R61 Generalized hyperhidrosis
CPT/HCPCS: 36415; 70450; 71046; 76705; 80053; 80069; 80074; 80307; 81001; 81025; 82140; 82306; 82550; 82607; 82746; 82948; 83735; 84100; 84443; 85025; 85027; 85055; 85610; 85730; 86038; 86039; 93005; 96361; 96365; 96366; 96368; 96375; 96376; 99285; A9270; G0378; G0379; J2060; J3411; J3475; J3480; J7030; J7050; J7120; J7121

== ENCOUNTER 2024-05-05 13:58 | Outpatient (CLI) | payer OTHER, SELFPAY ==
[2024-05-05 15:20] LABS: Rubella IgG Antibody 18.2 IU/ML
[2024-05-07 07:49] LABS: Varicella IgG Antibody <1.00 S/CO
== END 2024-05-05 13:59 | disposition home or self-care (01) ==
LOC: ANHLAB 14:05
DX: Z13.29 Encounter for screening for other suspected endocrine disorder (principal); Z01.83 Encounter for blood typing; Z11.59 Encounter for screening for other viral diseases; Z78.9 Other specified health status
CPT/HCPCS: 36415; 84443; 86762; 86787; 86850; 86900; 86901